=== PATIENT | male | born 1980 | race Hispanic/Latino ===

== ENCOUNTER 2022-07-12 20:24 | Emergency (ER) | payer OTHER ==
[~2022-07-12] VITALS: Ht 170.2 cm; Wt 81.2 kg
[2022-07-12 22:51] VITALS: BP 150/96
[2022-07-12] MEDS ORDERED: LISINOPRIL 10 MG TABLET PO ONE (23:00)
[2022-07-13] MEDS ORDERED: LISI10TA24 PO (00:41)
== END 2022-07-13 00:53 | disposition home or self-care (01) ==
LOC: EDH 20:24
DX: I10 Essential (primary) hypertension (principal); R11.0 Nausea; F41.9 Anxiety disorder, unspecified